=== PATIENT | female | born 1970 | race Caucasian/White ===

== ENCOUNTER 2017-05-17 02:44 | Emergency (ER) | payer MEDICARE, MEDICAID ==
[~2017-05-17 02:44] MED LIST: ATIVAN1 M2 PO; ATIVAN2 MG PO; BUPROPION; BUPROPION XL300 MG PO; BUSPAR15 MG PO; CATAPRES0.2 MG PO; DESYREL300 MG PO; ELAVIL150 MG PO; ELAVIL75 MG PO; GLIMEPIRIDE4 M1 PO; GLIMEPIRIDE4 MG PO; IMITREX25 MG PO; KLONOPIN0.5 M1 PO; LAMICTAL PO; LEVOXYL50 MC1 PO; METFORMIN HCL1000 M2 PO; METFORMIN HCL500 MG PO; MOTRIN600 MG PO; NEURONTIN300 MG PO; NEURONTIN600 M1 PO; NORCO 5/325 TAB1 TAB PO; OMEPRAZOLE20 M2 PO; PERCOCET 5-3251 EACH PO; SEROQUEL XR300 MG PO; SINEQUAN25 MG PO; TERBINAFINE HC250 M1 PO; TRAMADOL HCL50 M2 PO; TRAZODONE HCL300 M1 PO; VICTOZA 2-0.6 MG/0.1 SQ
[2017-05-17 03:26] LABS: URINE BILIRUBIN NEGATIVE (NEG); URINE BLOOD LARGE (NEG); URINE GLUCOSE (UA) NEGATIVE (NEG); URINE KETONE NEGATIVE (NEG); URINE LEUKOCYTE ESTERASE POSITIVE (NEG); URINE NITRITE NEGATIVE (NEG); URINE PROTEIN MODERATE (NEG); URINE SPECIFIC GRAVITY 1.005 (1.003-1.030)
[2017-05-17 03:27] LABS: URINE APPEARANCE CLEAR; URINE COLOR PALE YELLOW
[2017-05-17] MEDS ORDERED: BUSPIRONE HCL15 M2 PO (03:40)
[2017-05-17] MEDS ORDERED: DOXEPIN HCL10 M1 PO (03:41)
[2017-05-17] MEDS ORDERED: LEVEMIR100 UNITS/ SC (03:42)
[2017-05-17] MEDS ORDERED: ROBAXIN-750750 M1 PO (03:43)
[2017-05-17] MEDS ORDERED: NAPROSYN500 M1 PO (03:43)
[2017-05-17] MEDS ORDERED: PROTONIX40 M2 PO (03:44)
[2017-05-17] MEDS ORDERED: GLUCOVANCE 5-51 EACH PO (03:46)
[2017-05-17 03:52] LABS: URINE WBC 20-30 /[HPF] (0-5)
[2017-05-17] MEDS ORDERED: ZOFRAN4 M2 PO (03:56)
[2017-05-17] MEDS ORDERED: MACROBID 100 M100 M1 PO (03:56)
[2017-05-17] MEDS ORDERED: PYRIDIUM100 M2 PO (03:57)
[2017-06-01] MEDS ORDERED: TRADJENTA5 M1 PO (19:07)
[2017-06-01] MEDS ORDERED: HYDROCHLOROTHIA25 M1 PO (21:49)
== END 2017-05-17 04:15 ==
LOC: EDMED 02:44
PROVIDERS: Emergency Medicine
DX: N39.0 Urinary tract infection, site not specified (principal); E11.9 Type 2 diabetes mellitus without complications; E03.9 Hypothyroidism, unspecified; F41.9 Anxiety disorder, unspecified; F32.9 Major depressive disorder, single episode, unspecified; G43.909 Migraine, unspecified, not intractable, without status migrainosus; F17.200 Nicotine dependence, unspecified, uncomplicated; Z90.49 Acquired absence of other specified parts of digestive tract; Z98.890 Other specified postprocedural states; Z79.4 Long term (current) use of insulin; Z79.890 Hormone replacement therapy; Z79.899 Other long term (current) drug therapy
CPT/HCPCS: J1885

== ENCOUNTER 2017-08-02 22:32 | Emergency (ER) | payer MEDICARE, MEDICAID ==
[~2017-08-02] VITALS: Ht 160 cm; Wt 143.6 kg
[~2017-08-02 22:32] MED LIST changes: +BUSPIRONE HCL15 M2 PO; +DOXEPIN HCL10 M1 PO; +GLUCOVANCE 5-51 EACH PO; +HYDROCHLOROTHIA25 M1 PO; +LEVEMIR100 UNITS/ SC; +MACROBID 100 M100 M1 PO; +NAPROSYN500 M1 PO; +PROTONIX40 M2 PO; +PYRIDIUM100 M2 PO; +ROBAXIN-750750 M1 PO; +TRADJENTA5 M1 PO; +ZOFRAN4 M2 PO
[2017-08-02] MEDS ORDERED: HYDROCHLOROTHIA25 M1 PO (23:44)
[2017-08-02] MEDS ORDERED: NOVOLOG100 UNITS/ SC (23:46)
[2017-08-02] MEDS ORDERED: LYRICA50 MG/CAP PO (23:47)
[2017-08-03 00:03] LABS: BASO % 0.2 % (0-2); EOS % 1.4 % (0-7); EOSINOPHIL ABSOLUTE COUNT 0.1 tho/cmm (0.0-0.7); HCT-HEMATOCRIT 37.6 % (34.0-49.0); HGB-HEMOGLOBIN 12.6 gm/dl (12.0-15.5); IMMATURE GRANULOCYTES ABSOLUTE 0.05 tho/cmm (0-0.03); IMMATURE GRANULOCYTES PERCENT 0.6 % (0-0.3); LYMPH % 26.1 % (20-45); LYMPH ABSOLUTE COUNT 2.1 tho/cmm (0.8-4.5); MCH (MEAN CORPUSCULAR HGB) 28.1 pg (28.0-32.0); MCHC MEAN CORPUSCULAR HGB CONC 33.5 % (32.0-36.0); MCV (MEAN CELL VOLUME) 83.9 fl (82.0-96.0); MEAN PLATELET VOLUME 9.6 cmc (9.4-12.4); MONOCYTE ABSOLUTE COUNT 0.5 tho/cmm (0.0-1.2); NEUTROPHIL ABSOLUTE COUNT 5.3 tho/cmm (1.6-8.0); NEUTROPHIL-AUTOMATED 5.3 tho/cmm (1.6-8.0); NEUTROPHILS % 65.7 % (40-80); PLATELET COUNT 205 tho/cmm (150-450); RED BLOOD COUNT 4.48 mil/cmm (4.00-5.20); RED CELL DISTRIBUTION WIDTH 15.4 % (12.4-16.4); WHITE BLOOD COUNT 8.1 tho/cmm (4.0-10.0)
[2017-08-03 00:10] LABS: INR 0.9 INR (0.9-1.1); PROTHROMBIN TIME 10.7 SECONDS (9.0-13.6)
[2017-08-03 00:32] LABS: ALB/GLOB RATIO 0.9 (0.8-2.0); ALBUMIN 3.3 g/dl (3.5-5.0); ALKALINE PHOSPHATASE 133 U/L (33-138); ALT/SGPT 35 U/L (12-78); ANION GAP 6 mmol/L (0-20); AST/SGOT 13 U/L (10-40); BILIRUBIN,TOTAL 0.3 mg/dl (0-1.5); BLOOD UREA NITROGEN 9 mg/dl (6-24); CALCIUM 9.1 mg/dl (8.5-10.5); CARBON DIOXIDE-VENOUS 35 mmol/L (22-32); CHLORIDE 99 mmol/l (96-110); CREATININE 0.72 mg/dl (0.50-1.10); GLUCOSE 289 mg/dL (70-110); POTASSIUM 4.2 mmol/L (3.7-5.1); SODIUM 136 mmol/L (135-145); eGFR VALUE FOR BLACK >90 mL/Min
== END 2017-08-03 02:35 ==
LOC: EDMED 22:32
PROVIDERS: Emergency Medicine
DX: S80.12XA Contusion of left lower leg, initial encounter (principal); S80.11XA Contusion of right lower leg, initial encounter; E03.9 Hypothyroidism, unspecified; E11.9 Type 2 diabetes mellitus without complications; F17.200 Nicotine dependence, unspecified, uncomplicated; Z95.1 Presence of aortocoronary bypass graft; W19.XXXA Unspecified fall, initial encounter